=== PATIENT | male | born 1965 | race Caucasian/White ===

== ENCOUNTER 2019-01-12 11:10 | Emergency (ER) | payer MEDICARE ==
[~2019-01-12] VITALS: Ht 170.2 cm; Wt 74.8 kg
[2019-01-12] MEDS ORDERED: IV NORMAL SALINE 1000ML BAG 1,000 ML IV SCH (11:41)
--- NOTE | 2019-01-12 11:49 | PHYS DOC ---
Past Medical History Additional Past Surgical Histo: intestinal surgery Smoking: Cigarettes Alcohol Use: Occasionally Adult General Chief Complaint Chief Complaint: RECTAL BLEED HPI HPI Patient is a 53-year-old male who presents to the emergency department for evaluation. For the past 2 weeks, he states he has had bright red blood mixed with his stool. He denies any other symptoms, denies any dizziness or lightheadedness, nausea, vomiting, diarrhea, or abdominal pain. He states that since his symptoms persisted for 2 weeks, he decided to come to the emergency department. He is currently asymptomatic. It or exacerbating factors to his s ymptoms. He states he did have some intestinal surgery for some obstruction at about the age of [age], is uncertain exactly what surgery he had or for what condition. He has not had any abdominal problems since. The odor of alcohol detectable on the patient's breath, he states he drank heavily yesterday, but does not drink daily, he does drink once a week, on average, occasionally heavily. Review of Systems Review of Systems Constitutional: Denies fever or chills [] Eyes: Denies change in visual acuity, redness, or eye pain [] HENT: Denies nasal congestion or sore throat [] Respiratory: Denies cough or shortness of breath [] Cardiovascular: The patient denies any shortness of breath, chest pain, palpitations, or orthopnea. The patient denies any dizziness or lightheadedness. [] GI: Denies abdominal pain, nausea, vomiting, black stools or diarrhea [] : Denies dysuria or hematuria [] Musculoskeletal: Denies back pain or joint pain [] Integument: Denies rash or skin lesions [] Neurologic: Denies headache, focal weakness or sensory changes [] Endocrine: Denies polyuria or polydipsia [] All other systems were reviewed and found to be within normal limits, except as documented in this note. Current Medications Current Medications Current Medications Medications (Trade) Dose Ordered Sig/Katalina Start Time Stop Time Status Last Admin Dose Admin Sodium Chloride 1,000 ml @ 1,000 mls/hr Q1H 01/12/19 11:41 01/12/19 12:40 DC 01/12/19 12:26 1,000 MLS/HR Allergies Allergies Allergies Coded Allergies Type Severity Reaction Last Updated Verified No Known Drug Allergies 01/12/19 No Physical Exam Physical Exam PHYSICAL EXAM: CONSTITUTIONAL: Well developed, well nourished HEAD: normocephalic, atraumatic EENT: PERRL, EOMI. Conjunctivae are injected, sclerae non-icteric; moist mucous membranes. NECK: Supple, non-tender; no meningismus. LUNGS: Lungs CTA, breathing even and unlabored. Normal air movement. HEART: Regular rate and rhythm, no murmur CHEST: No deformity; non-tender ABDOMEN: The abdomen is soft, and non-tender, no masses or bruits. EXTREM: Normal ROM; no deformity, no calf tenderness. Normal pulses palpable in all extremities. There is no pedal edema. SKIN: No rash; no diaphoresis NEURO: Alert; normal speech and cognition; CN's grossly intact; strength grossly intact without focal deficit. BACK: No CVA TTP. RECTAL EXAM: There is brown stool, perianal examination is unremarkable. Current Patient Data Vital Signs Vital Signs Date Time Temp Pulse Resp B/P (MAP) Pulse Ox O2 Delivery O2 Flow Rate FiO2 01/12/19 11:40 98.2 109 23 154/88 (110) 97 Room Air 98.2 Lab Values Laboratory Tests Test 01/12/19 11:45 01/12/19 12:00 Stool Occult Blood Positive (NEG) White Blood Count 7.2 x10^3/uL (4.0-11.0) Red Blood Count 5.03 x10^6/uL (4.30-5.70) Hemoglobin 15.6 g/dL (13.0-17.5) Hematocrit 45.7 % (39.0-53.0) Mean Corpuscular Volume 91 fL (79-100) Mean Corpuscular Hemoglobin 31 pg (25-35) Mean Corpuscular Hemoglobin Concent 34 g/dL (31-37) Red Cell Distribution Width 14.6 % (11.5-14.5) H Platelet Count 246 x10^3/uL (140-400) Neutrophils (%) (Auto) 61 % (31-73) Lymphocytes (%) (Auto) 28 % (24-48) Monocytes (%) (Auto) 9 % (0-9) Eosinophils (%) (Auto) 2 % (0-3) Basophils (%) (Auto) 1 % (0-3) Neutrophils # (Auto) 4.4 x10^3/uL (1.8-7.7) Lymphocytes # (Auto) 2.0 x10^3/uL (1.0-4.8) Monocytes # (Auto) 0.6 x10^3/uL (0.0-1.1) Eosinophils # (Auto) 0.1 x10^3/uL (0.0-0.7) Basophils # (Auto) 0.1 x10^3/uL (0.0-0.2) Prothrombin Time 12.4 SEC (11.7-14.0) Prothrombin Time INR 1.0 (0.8-1.1) Sodium Level 142 mmol/L (136-145) Potassium Level 4.0 mmol/L (3.5-5.1) Chloride Level 107 mmol/L (98-107) Carbon Dioxide Level 23 mmol/L (21-32) Anion Gap 12 (6-14) Blood Urea Nitrogen 13 mg/dL (8-26) Creatinine 0.8 mg/dL (0.7-1.3) Estimated GFR (Cockcroft-Gault) 100.4 BUN/Creatinine Ratio 16 (6-20) Glucose Level 67 mg/dL (70-99) L Calcium Level 8.9 mg/dL (8.5-10.1) Total Bilirubin 0.3 mg/dL (0.2-1.0) Aspartate Amino Transferase (AST) 24 U/L (15-37) Alanine Aminotransferase (ALT) 28 U/L (16-63) Alkaline Phosphatase 108 U/L (46-116) Total Protein 7.4 g/dL (6.4-8.2) Albumin 3.6 g/dL (3.4-5.0) Albumin/Globulin Ratio 0.9 (1.0-1.7) L Ethyl Alcohol Level 39 mg/dL (0-10) H Laboratory Tests 01/12/19 12:00 Laboratory Tests 01/12/19 12:00 EKG EKG [] Radiology/Procedures Radiology/Procedures [] Course & Med Decision Making Course & Med Decision Making Pertinent Labs and Imaging studies reviewed. (See chart for details) []12:45 PM: The patient's condition remains stable. Due to the two-week duration of his bleeding and normal hemoglobin, outpatient evaluation is appropriate. I stressed and discussed importance of close outpatient follow-up with the patient, to definitively rule out malignancy or other serious etiology, the need for him to schedule follow-up GI department, and return precautions were discussed in detail. Dragon Disclaimer Dragon Disclaimer This electronic medical record was generated, in whole or in part, using a voice recognition dictation system. Departure Departure Impression: Primary Impression: Rectal bleeding Disposition: HOME, SELF-CARE Condition: STABLE Referrals: QUINN GANNON MD Patient Instructions: Rectal Bleeding Additional Instructions: Return to medical care for any new, or worsening symptoms, development of significantly increased bleeding, dizziness, lightheadedness, or any other new, or concerning symptoms. It is important that you obtain a follow-up appointment in a timely manner, to undergo further evaluation to exclude serious etiology or malignancy as a causative symptoms. If you develop any pain or fever, or any other concerning symptoms, return to the emergency department immediately for further evaluation STEWART GALVAN MD Jan 12, 2019 11:49
[2019-01-12 11:52] LABS: FECAL OB PT POSITIVE (NEG)
[2019-01-12 12:11] LABS: BASO # 0.1 x10^3/uL (0.0-0.2); BASO % 1 % (0-3); EOS # 0.1 x10^3/uL (0.0-0.7); EOS % 2 % (0-3); HEMATOCRIT 45.7 % (39.0-53.0); HEMOGLOBIN 15.6 g/dL (13.0-17.5); LYMPH % 28 % (24-48); MEAN CORPUSCULAR HEMOGLOBIN 31 pg (25-35); MEAN CORPUSCULAR HGB CONC 34 g/dL (31-37); MEAN CORPUSCULAR VOLUME 91 fL (79-100); MONO # 0.6 x10^3/uL (0.0-1.1); MONO % 9 % (0-9); NEUT # 4.4 x10^3/uL (1.8-7.7); NEUT % 61 % (31-73); PLATELET COUNT 246 x10^3/uL (140-400); RED BLOOD COUNT 5.03 x10^6/uL (4.30-5.70); RED CELL DISTRIBUTION WIDTH 14.6 % (11.5-14.5); WHITE BLOOD COUNT 7.2 x10^3/uL (4.0-11.0)
[2019-01-12 12:16] LABS: CALCIUM 8.9 mg/dL (8.5-10.1); CREATININE 0.8 mg/dL (0.7-1.3); GFR 100.4
[2019-01-12 12:22] LABS: ALBUMIN 3.6 g/dL (3.4-5.0); ALBUMIN/GLOBULIN RATIO 0.9 (1.0-1.7); TOTAL BILIRUBIN 0.3 mg/dL (0.2-1.0); TOTAL PROTEIN 7.4 g/dL (6.4-8.2)
[2019-01-12 12:27] LABS: PROTHROMBIN TIME PATIENT 12.4 SEC (11.7-14.0)
[2019-01-12 13:34] VITALS: BP 121/74
== END 2019-01-12 14:00 | disposition home or self-care (01) ==
LOC: ER 11:10
DX: K62.5 Hemorrhage of anus and rectum (principal); F17.210 Nicotine dependence, cigarettes, uncomplicated
CPT/HCPCS: 36415; 80053; 82274; 85025; 85610; 99284; G0480; J7030

== ENCOUNTER 2020-09-23 10:13 | Emergency (ER) | payer MEDICARE ==
[~2020-09-23] VITALS: Ht 170.2 cm; Wt 80.1 kg
[2020-09-23 11:10] VITALS: BP 147/87
--- NOTE | 2020-09-23 12:06 | RAD ---
Exam performed: CT scan of the head without contrast. Date of Service: 09/23/2020. Comparison: None available. Clinical History: Mental status change. Technique: Helical acquisitions are obtained from the foramen magnum to the vertex without intravenou s administration of contrast. Findings: There is a round 2.1 cm rim calcified mass in the right parietal lobe perhaps in the atrium of the ri ght lateral ventricle or adjacent to it. There is a surgical clip or coil in the right temporal parie tra region and with mild dilation of the right temporal lobe. There is frontal parietal periventricul ar region. Low attenuation in the right The ventricles are midline without evidence of dilatation. Normal chung-white differentiation is maint ained. There is no extra axial fluid collection, intraparenchymal hemorrhage or mass lesion. The vi sualized portions of the orbits, paranasal sinuses and the mastoid air cells appear clear. The anne-marie rium is intact. Impression: 1. No acute intracranial process detected. 2. A 2.1 cm rim calcified mass with adjacent surgical clip or coil seen in the right temporal parieta l region with mild dilation of the right temporal horn. Comparison with any previous CT head if avail able would be useful. If no prior CTs available, evaluation with MRI with contrast may be obtained to evaluate a potential cause for altered mental status. 3. Mild periventricular low-attenuation in the right frontoparietal region may be related to small ve ssel ischemic changes or prior infarct. PQRS Compliance Statement: One or more of the following individualized dose reduction techniques were utilized for this examinat ion: 1. Automated exposure control 2. Adjustment of the mA and/or kV according to patient size 3. Use of iterative reconstruction technique Electronically signed by: Susy Herrera MD (09/23/2020 12:03 PM) [id number]
--- NOTE | 2020-09-23 12:13 | PHYS DOC ---
Past Medical History Past Medical History: Other Additional Past Medical Histor: BRAIN ANEURYSM, INTESTINAL BLOCK-INFANCY Past Surgical History: Other Additional Past Surgical Histo: intestinal surgery Smoking Status: Current Every Day Smoker Additional Information: 0.5 PPD Alcohol Use: Occasionally Drug Use: None Adult General Chief Complaint Chief Complaint: HEAD INJURY/TRAUMA [facility] HPI Patient is a 54 year old male who denies any significant past medical history now presenting the emergency department complaining of new onset of headache. Patient states that 2 days ago he was gambling the [employer] when he fell backwards striking the back of his head causing laceration. Patient states he was seen by doctors at the [employer] discharged home. Patient states that he has been feeling sore with a headache since that time. States the headache is in the left anterior region which is throbbing without any photophobia or photophobia. Denies any nausea, vomiting or vision changes Review of Systems Review of Systems Constitutional: Denies fever or chills [] Eyes: Denies change in visual acuity, redness, or eye pain [] HENT: Denies nasal congestion or sore throat [] Respiratory: Denies cough or shortness of breath [] Cardiovascular: No additional information not addressed in HPI [] GI: Denies abdominal pain, nausea, vomiting, bloody stools or diarrhea [] : Denies dysuria or hematuria [] Musculoskeletal: Denies back pain or joint pain [] Integument: Denies rash or skin lesions [] Neurologic: Denies headache, focal weakness or sensory changes [] Endocrine: Denies polyuria or polydipsia [] All other systems were reviewed and found to be within normal limits, except as documented in this note. Allergies Allergies Allergies Coded Allergies Type Severity Reaction Last Updated Verified No Known Drug Allergies 01/12/19 No Physical Exam Physical Exam Constitutional: Well developed, well nourished, no acute distress, non-toxic appearance. [] HENT: Normocephalic, atraumatic, bilateral external ears normal, oropharynx moist, no oral exudates, nose normal. [] Eyes: PERRLA, EOMI, conjunctiva normal, no discharge. [] Neck: Normal range of motion, no tenderness, supple, no stridor. [] Cardiovascular:Heart rate regular rhythm, no murmur [] Lungs & Thorax: Bilateral breath sounds clear to auscultation [] Abdomen: Bowel sounds normal, soft, no tenderness, no masses, no pulsatile masses. [] Skin: Warm, dry, no erythema, no rash. [] Back: No tenderness, no CVA tenderness. [] Extremities: No tenderness, no cyanosis, no clubbing, ROM intact, no edema. [] Neurologic: Alert and oriented X 3, normal motor function, normal sensory function, no focal deficits noted. [] Psychologic: Affect normal, judgement normal, mood normal. [] Current Patient Data Vital Signs Vital Signs Date Time Temp Pulse Resp B/P (MAP) Pulse Ox O2 Delivery O2 Flow Rate FiO2 09/23/20 11:10 97.7 67 16 147/87 (107) 97 Room Air 97.7 EKG EKG [] Radiology/Procedures Radiology/Procedures Exam performed: CT scan of the head without contrast. Date of Service: 09/23/2020. Comparison: None available. Clinical History: Mental status change. Technique: Helical acquisitions are obtained from the foramen magnum to the vert ex without intravenous administration of contrast. Findings: There is a round 2.1 cm rim calcified mass in the right parietal lobe perhaps in the atrium of the right lateral ventricle or adjacent to it. There is a surgical clip or coil in the right temporal parietal region and with mild dilation of the right temporal lobe. There is frontal parietal periventricular region. Low attenuation in the right The ventricles are midline without evidence of dilatation. Normal chung-white differentiation is maintained. There is no extra axial fluid collection, intraparenchymal hemorrhage or mass lesion. The visualized portions of the orbits, paranasal sinuses and the mastoid air cells appear clear. The calvarium is intact. Impression: 1. No acute intracranial process detected. 2. A 2.1 cm rim calcified mass with adjacent surgical clip or coil seen in the right temporal parietal region with mild dilation of the right temporal horn. Comparison with any previous CT head if available would be useful. If no prior CTs available, evaluation with MRI with contrast may be obtained to evaluate a potential cause for altered mental status. 3. Mild periventricular low-attenuation in the right frontoparietal region may be related to small vessel ischemic changes or prior infarct. PQRS Compliance Statement: One or more of the following individualized dose reduction techniques were utilized for this examination: 1. Automated exposure control 2. Adjustment of the mA and/or kV according to patient size 3. Use of iterative reconstruction technique Electronically signed by: Susy Herrera MD (09/23/2020 12:03 PM) [id number] Course & Med Decision Making Course & Med Decision Making Pertinent Labs and Imaging studies reviewed. (See chart for details) 54-year-old male presenting the emergency department complaining of headache after a fall. Patient did endorse that he was unconscious he thinks for 8 to 10 minutes. No focal neurologic deficits. Because of this complaint will obtain a CT scan to make sure there is no significant intracranial hemorrhage. CT scan does not demonstrate any evidence of intracranial hemorrhage. I ndication for laceration repair is a small and repair greater than 24 hours and poses an increased risk of significant site infection. However CT scan does demonstrate what appears to be evidence of possible old surgically repaired calcified mass in the right parietal region. I explained to the patient the significance of this finding I encouraged him that he needs follow-up with neurology and neurosurgeon as soon as possible to have this evaluated with an MRI. Patient verbalized understanding agreement discharge Dragon Disclaimer Dragon Disclaimer This electronic medical record was generated, in whole or in part, using a voice recognition dictation system. Departure Departure Impression: Primary Impression: Calcified intracranial lesions Additional Impressions: Head injury Scalp laceration Brain concussion Disposition: HOME / SELF CARE / HOMELESS Condition: GOOD Referrals: JAVED ANDRES MD,CJ PAIZ MD, MD Patient Instructions: Head Injury, Adult Additional Instructions: EMERGENCY DEPARTMENT GENERAL DISCHARGE INSTRUCTIONS Thank you for coming to [facility] Emergency Department (ED) today and trusting us with you care. We trust that you had a positive experience in our Emergency Department. If you wish to speak to the department management, you may call the Director at [phone]. YOUR FOLLOW UP INSTRUCTIONS ARE FOLLOWS: 1. Do you have a private Doctor? If you do not have a private doctor, please ask for a resource list of physicians or clinics that may be able to assist you with follow up care. 2. The Emergency Physicain has interpreted your x-rays. The X-Ray specialist will also review them. If there is a change in the findings, you will be notified in 48 hours when at all possible. 3. A lab test or culture has been done, your results will be reviewed and you will be notified if you need a change in treatment. ADDITIONAL INSTRUCTIONS AND INFORMATION: 1. Your care today has been supervised by a physician who is specially trained in emergency care. Many problems require more than one evaluation for a complete diagnosis and treatment. We recommend that you schedule your follow up appointment as recommended to ensure complete treatment of you illness or injury. If you are unable to obtain follow up care and continue to have a problem, or if your condition worsens, we recommend that you return to the ED. 2. We are not able to safely determine your condition over the phone nor are we able to give sound medical advice over the phone. For these safety reasons, if you call for medical advice we will ask you to come to the ED for further evaluation. 3. If you have any questions regarding these discharge instructions please call the ED at [phone]. SAFETY INFORMATION: In the interest of safety, wellness, and injury prevention; we encourage you to wear your sealbelt, if you smoke; quite smoking, and we encourage family to use a protective helmet for bicycling and other sporting events that present an increased risk for head injury. IF YOUR SYMPTOMS WORSEN OR NEW SYMPTOMS DEVELOP, OR YOU HAVE CONCERNS ABOUT YOUR CONDITION; OR IF YOUR CONDITION WORSENS WHILE YOU ARE WAITING FOR YOUR FOLLOW UP APPOINTMENT; EITHER CONTACT YOUR PRIMARY CARE DOCTOR, THE PHYSICIAN WHOSE NAME AND NUMBER YOU WERE GIVEN, OR RETURN TO THE ED IMMEDIATELY. Problem Qualifiers JOSE ALBERTO COON MD Sep 23, 2020 12:13
== END 2020-09-23 12:22 | disposition home or self-care (01) ==
LOC: ER 10:13
DX: S01.01XA Laceration without foreign body of scalp, initial encounter (principal); S06.0X1A Concussion with loss of consciousness of 30 minutes or less, initial encounter; F17.200 Nicotine dependence, unspecified, uncomplicated; Z98.890 Other specified postprocedural states; W18.09XA Striking against other object with subsequent fall, initial encounter; Y93.89 Activity, other specified; Y92.89 Other specified places as the place of occurrence of the external cause; Y99.8 Other external cause status
CPT/HCPCS: 70450; 99283; 99284